=== PATIENT | male | born 1995 | race Caucasian/White ===

== ENCOUNTER 2023-05-07 16:57 | Emergency (ER) | payer SELFPAY ==
[~2023-05-07] VITALS: Ht 165.1 cm; Wt 65.0 kg
[2023-05-07 17:07] VITALS: BP 135/82; PULSE 86; RESP 19; TEMP 98.8; O2SAT 98
== END 2023-05-07 18:11 ==
LOC: ER 16:57
DX: R45.851 Suicidal ideations (principal); F32.A Depression, unspecified
CPT/HCPCS: 99283; 99285